=== PATIENT | male | born 2000 | race Two or more races ===

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

== ENCOUNTER 2018-03-01 13:04 | Emergency (ER) | payer OTHER ==
[~2018-03-01] VITALS: Ht 175.3 cm; Wt 74.8 kg
[~2018-03-01 13:04] MED LIST changes: +12 HOUR NASAL S30 ML NASAL; +BACTRIM DS TAB1 EAC1 ORAL; +GUAIFENESIN1200 MG PO; +MUPIROCIN22 GM TOPIC; +PROMETHAZINE-C118 M1 ORAL; +TYLENOL EXTRA500 MG ORAL
[2018-03-01 13:20] VITALS: BP 128/76
[2018-03-01] MEDS ORDERED: NKM (13:22)
[2018-03-01] MEDS ORDERED: ROBAXIN-750750 MG PO (13:38)
[2018-03-01] MEDS ORDERED: IBUPROFEN600 MG ORAL (13:38)
[2018-03-01 13:45] VITALS: BP 124/74
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
== END 2018-03-01 14:09 | disposition home or self-care (01) ==
LOC: EMR 13:40
DX: S13.9XXA Sprain of joints and ligaments of unspecified parts of neck, initial encounter (principal); S23.3XXA Sprain of ligaments of thoracic spine, initial encounter; V43.62XA Car passenger injured in collision with other type car in traffic accident, initial encounter; Y92.411 Interstate highway as the place of occurrence of the external cause
CPT/HCPCS: 99282

== ENCOUNTER 2018-11-05 23:30 | Emergency (ER) | payer OTHER ==
[~2018-11-05] VITALS: Ht 175.3 cm; Wt 84.4 kg
[~2018-11-05 23:30] MED LIST changes: +ROBAXIN-750750 MG PO
[2018-11-05] MEDS ORDERED: Mylanta II UD 30ml ORAL ONE (23:45)
[2018-11-05] MEDS ORDERED: PRILOSEC OTC20 MG ORAL (23:46)
--- NOTE | 2018-11-05 23:47 | Emergency Room Report ---
History of Present Illness General Chief Complaint: Pain Source: Patient Present Illness HPI This is a 18-year-old male with no past medical history. He presents with chief complaint of chest pain and abdominal pain. He said is a burning sensation from his throat down to his epigastric area. Worse when he eats or drink. He felt like his esophagus closing up. Also with bilateral chest pain. Onset last night. Better now. Denies any other complaint. No exertional component. No nausea no vomiting. He had heartburn when he was a kid. Allergies: Coded Allergies: No Known Allergies (Unverified , 04/28/12) Patient History Past Medical History: see triage record, old chart reviewed Past Surgical History: none Pertinent Family History: none Social History: Denies: smoking Immunizations: UTD Reviewed Nursing Documentation: PMH: Agreed; PSxH: Agreed Nursing Documentation-PMH Past Medical History: No Stated History Review of Systems Eye: Denies: eye pain, blurred vision ENT: Denies: ear pain, nose congestion, throat swelling Respiratory: Denies: cough, shortness of breath Cardiovascular: Reports: chest pain; Denies: palpitations Gastrointestinal: Reports: abdominal pain; Denies: diarrhea, nausea, vomiting Musculoskeletal: Denies: back pain, joint pain Skin: Denies: rash Neurological: Denies: headache, numbness Endocrine: Denies: increased thirst, increased urine Hematologic/Lymphatic: Denies: easy bruising All Other Systems: negative except mentioned in HPI Physical Exam Vital Signs Date Time Temp Pulse Resp B/P (MAP) Pulse Ox O2 Delivery O2 Flow Rate FiO2 11/05/18 23:34 98.8 62 16 132/82 (99) 97 Room Air Vitals normal Sp02 EP Interpretation: reviewed, normal General Appearance: well appearing, no apparent distress, alert Head: normocephalic, atraumatic Eyes: bilateral eye PERRL, bilateral eye EOMI ENT: hearing grossly normal, normal pharynx Neck: full range of motion, supple, no meningismus Respiratory: chest non-tender, lungs clear, normal breath sounds Cardiovascular #1: regular rate, rhythm, no murmur Gastrointestinal: normal bowel sounds, non tender, no mass, no organomegaly, no bruit, non-distended Musculoskeletal: back normal, gait/station normal, normal range of motion Psychiatric: mood/affect normal Medical Decision Making Diagnostic Impression: Primary Impression: GERD (gastroesophageal reflux disease) Qualified Codes: K21.9 - Gastro-esophageal reflux disease without esophagitis ER Course Patient presents with chief complaint consistent with reflux/gastritis. No evidence of ACS, PE, dissection to name a few. Will discharge home. Last Vital Signs Date Time Temp Pulse Resp B/P (MAP) Pulse Ox O2 Delivery O2 Flow Rate FiO2 11/05/18 23:34 98.8 62 16 132/82 (99) 97 Room Air Status: improved Disposition: HOME, SELF-CARE Condition: Stable Scripts Omeprazole Magnesium (PRILOSEC OTC) 20 Mg Tablet. 20 MG ORAL DAILY, #30 TAB Prov: Tyson Montgomery MD 11/05/18 Additional Instructions: Follow-up with your doctor in 7 days. Return if symptoms worsen. Tyson Montgomery MD Nov 05, 2018 23:47
[2018-11-06] VITALS: BP 132/82
--- NOTE | 2018-11-06 | NUR ---
ED Nurse Note: Recieved pt from home with c/o mid chest burning sensation since yesterday, pt describes as heart burn, rated at 7/10 and burning, no sob or labored breathing and denies any other complaints or discomforts, pt medicated as ordered and given prescription, pt is being d/c to home, sat with pt and discussed foods to avoid and s/s to monitor for, pt is leaving ambulatory, armband removed, nad noted during d/c to home.
== END 2018-11-06 | disposition home or self-care (01) ==
LOC: EMR 23:58
DX: K21.9 Gastro-esophageal reflux disease without esophagitis (principal); R07.9 Chest pain, unspecified
CPT/HCPCS: 99282

== ENCOUNTER 2019-05-08 18:33 | Emergency (ER) | payer OTHER ==
[~2019-05-08] VITALS: Ht 175.3 cm; Wt 81.6 kg
[~2019-05-08 18:33] MED LIST changes: +PRILOSEC OTC20 MG ORAL
--- NOTE | 2019-05-08 18:44 | NUR ---
ED Nurse Note: pt ambulated to ed with steady gait, c/o flu like symptoms; runny nose, sore throat/cough, and fever x 4 days. NAD noted. pt vss.
[2019-05-08 18:45] VITALS: BP 125/74
--- NOTE | 2019-05-08 18:50 | Emergency Room Report ---
History of Present Illness General Chief Complaint: Flu Like Symptoms Source: Patient Present Illness HPI 19-year-old male with no symptom past medical history here complaining of 2 days of generalized body ache, fever feeling feverish and chills. Complains of cough and congestion however denies sore throat. Denies abdominal pain, nausea vomiting at this time. Has not taken medication for symptom relief. Appears to be afebrile. Denies recent travel, urinary symptoms, back to smoke, marijuana use, alcohol intake. Allergies: Coded Allergies: No Known Allergies (Unverified , 04/28/12) Patient History Past Medical History: see triage record Past Surgical History: none Pertinent Family History: none Immunizations: UTD Reviewed Nursing Documentation: PMH: Agreed; PSxH: Agreed Nursing Documentation-PMH Past Medical History: No Stated History Review of Systems All Other Systems: negative except mentioned in HPI Physical Exam Vital Signs Date Time Temp Pulse Resp B/P (MAP) Pulse Ox O2 Delivery O2 Flow Rate FiO2 05/08/19 18:39 99.5 105 19 125/74 (91) 98 Room Air Sp02 EP Interpretation: reviewed, normal General Appearance: no apparent distress, alert, GCS 15, non-toxic Head: normocephalic, atraumatic Eyes: bilateral eye normal inspection, bilateral eye PERRL ENT: hearing grossly normal, normal pharynx, no angioedema, normal voice Neck: full range of motion, supple, no meningismus, supple/symm/no masses Respiratory: chest non-tender, lungs clear, normal breath sounds, no rhonchi, no retraction, no wheezing, speaking full sentences Cardiovascular #1: regular rate, rhythm, no edema, no murmur, normal capillary refill Gastrointestinal: non tender, soft Rectal: deferred Genitourinary: no CVA tenderness Musculoskeletal: back normal Neurologic: alert, motor strength/tone normal, oriented x3, sensory intact, responsive, speech normal Psychiatric: judgement/insight normal, memory normal, mood/affect normal, no suicidal/homicidal ideation Skin: no rash, palpation normal, normal inspection Lymphatic: no adenopathy Medical Decision Making PA Attestation Diagnosis and treatment plans were reviewed and discussed with my supervising physician Dr. Swartz Diagnostic Impression: Primary Impression: Influenza ER Course 19-year-old male with no symptom past medical history here complaining of 2 days of generalized body ache, fever feeling feverish and chills. Complains of cough and congestion however denies sore throat. Denies abdominal pain, nausea vomiting at this time. Has not taken medication for symptom relief. Appears to be afebrile. Denies recent travel, urinary symptoms, back to smoke, marijuana use, alcohol intake. Ddx considered but are not limited to: strep pharyngitis, URI, tonsillitis, peritonsillar abscess, influenza Vital signs: are WNL, pt. is afebrile H&PE are most consistent with: Influenza ORDERS: Tamiflu, guaifenesin ED INTERVENTIONS: None required at this time. DISCHARGE: At this time pt. is stable for d/c to home. Will provide printed patient care instructions, and any necessary prescriptions. Care plan and follow up instructions have been discussed with the patient prior to discharge. Patient take medication as directed, follow-up primary care provider, patient has an upcoming finals tomorrow and does not want any time off from school. If worsening symptoms return to the emergency room Last Vital Signs Date Time Temp Pulse Resp B/P (MAP) Pulse Ox O2 Delivery O2 Flow Rate FiO2 05/08/19 18:45 99.5 106 19 125/74 98 Room Air Disposition: HOME, SELF-CARE Condition: Stable Scripts Guaifenesin* (GUAIFENESIN*) 100 Mg/5 Ml Liquid 5 ML ORAL Q6H, #120 ML 0 Refills Prov: Pako Smith 05/08/19 Oseltamivir Phosphate (Tamiflu) 75 Mg Capsule 75 MG ORAL TWICE A DAY for 5 Days, #10 CAP Prov: Pako Smith 05/08/19 Patient Instructions: Upper Respiratory Infection, Adult, [id number] Additional Instructions: Take medication as directed, follow-up with your primary care provider, increase oral hydration, if worsening symptoms return to the emergency room Pako Smith May 08, 2019 18:50
[2019-05-08] MEDS ORDERED: TAMIFLU75 MG ORAL (18:52)
[2019-05-08] MEDS ORDERED: GUAIFENESI100 MG/5 M ORAL (18:52)
[2019-05-08 18:55] VITALS: BP 124/71
--- NOTE | 2019-05-08 18:56 | NUR ---
ER DISCHARGE NOTE: Patient is cleared to be discharged per ERMD, pt is aox4, on room air, with stable vital signs. pt was given dc and prescription instructions, pt was able to verbalize understanding, pt id band removed. pt is able to ambulate with steady gait. pt took all belongings.
== END 2019-05-08 18:55 | disposition home or self-care (01) ==
LOC: EMR 18:50
DX: J11.1 Influenza due to unidentified influenza virus with other respiratory manifestations (principal)
CPT/HCPCS: 99282